=== PATIENT | male | born 1950 | race Caucasian/White ===

== ENCOUNTER 2020-05-09 09:19 | Emergency (ER) | payer MEDICARE ==
[~2020-05-09] VITALS: Ht 177.8 cm; Wt 92.5 kg
[~2020-05-09 09:19] MED LIST: ASPIR 8181 M1 PO; ATORVASTATIN CA40 MG PO; EFFIENT10 MG PO; GLYBURIDE 2.52.5 MG PO; IMDUR 30 MG TAB30 M1 PO; LISINOPRIL-HCT1 EACH PO; METFORMIN HCL500 MG PO; NITROGLYCERIN0.4 MG SUBLING
[2020-05-09] MEDS ORDERED: TRESIBA FL100 UNIT/1 SUBQ (09:29)
[2020-05-09 10:18] LABS: HEMOGLOBIN 17.5 gm/dL (14.0-18.0); MCH 31.7 pg (26.0-34.0); MCHC 35.1 g/dL (28.0-37.0); MCV 90.3 fL (80.0-100.0); MPV 8.1 fl. (7.2-11.1); NUCLEATED RBCS 0 /100WBC; PLATELET COUNT* 132 thou/uL (150-400); RBC 5.53 mil/uL (4.50-6.00); RDW-CV 12.6 % (10.5-14.5)
[2020-05-09 10:36] LABS: CALCIUM 8.5 mg/dL (8.5-10.1); POTASSIUM 3.6 mmol/L (3.5-5.1)
[2020-05-09 10:40] LABS: ALBUMIN 3.5 g/dL (3.4-5.0); TOTAL BILIRUBIN 1.4 mg/dL (<0.1-1.0); TOTAL PROTEIN 6.9 g/dL (6.4-8.2)
[2020-05-09 10:54] LABS: BE -3.5 mmol/L (-2 to +3); PO2 116.7 mmHg (75.0-100.0); pH 7.543 (7.340-7.450)
[2020-05-09 10:55] LABS: PCO2 17.7 mmHg (35.0-45.0)
[2020-05-09 11:06] LABS: ABSOLUTE LYMPHOCYTES 0.5 thou/uL (0.8-5.3); ABSOLUTE MONOCYTES 0.4 thou/uL (0.0-1.2); ABSOLUTE NEUTROPHILS 0.6 thou/uL (1.6-8.1); PLATELET ESTIMATE DECREASED
[2020-05-09 12:00] VITALS: BP 157/74
[2020-05-10 10:03] LABS: WBC 1.5 thou/uL (4.0-11.0)
== END 2020-05-09 12:00 | disposition home or self-care (01) ==
LOC: M.ERS 09:19
PROVIDERS: Personal Emergency Response Attendant
DX: U07.1 COVID-19 (principal); I10 Essential (primary) hypertension; E78.00 Pure hypercholesterolemia, unspecified; E11.9 Type 2 diabetes mellitus without complications; Z85.46 Personal history of malignant neoplasm of prostate; Z79.4 Long term (current) use of insulin; Z88.0 Allergy status to penicillin; Z88.2 Allergy status to sulfonamides

== ENCOUNTER 2020-05-12 19:41 | Inpatient (IN) | payer MEDICARE ==
[~2020-05-12] VITALS: Ht 177.8 cm; Wt 85.3 kg
[~2020-05-12 19:41] MED LIST changes: +TRESIBA FL100 UNIT/1 SUBQ
[2020-05-12 19:44] VITALS: BP 148/81
[2020-05-12 20:50] LABS: ABSOLUTE LYMPHOCYTES 0.3 thou/uL (0.8-5.3); ABSOLUTE MONOCYTES 0.6 thou/uL (0.0-1.2); ABSOLUTE NEUTROPHILS 2.8 thou/uL (1.6-8.1); BASOPHILS 0.7 %; EOSINOPHILS 0.1 %; HEMATOCRIT 49.3 % (42.0-52.0); HEMOGLOBIN 17.5 gm/dL (14.0-18.0); LYMPHOCYTES 9.2 %; MCH 31.6 pg (26.0-34.0); MCHC 35.6 g/dL (28.0-37.0); MCV 88.9 fL (80.0-100.0); MONOCYTES 15.3 %; MPV 8.7 fl. (7.2-11.1); NUCLEATED RBCS 0 /100WBC; PLATELET COUNT* 142 thou/uL (150-400); POLYS 74.7 %; RBC 5.54 mil/uL (4.50-6.00); RDW-CV 12.6 % (10.5-14.5); WBC 3.7 thou/uL (4.0-11.0)
[2020-05-12 20:51] LABS: CALCIUM 8.1 mg/dL (8.5-10.1); CREATININE 0.8 mg/dL (0.6-1.3); POTASSIUM 3.9 mmol/L (3.5-5.1)
[2020-05-12 21:01] LABS: ALBUMIN 3.1 g/dL (3.4-5.0); TOTAL BILIRUBIN 1.2 mg/dL (<0.1-1.0); TOTAL PROTEIN 6.7 g/dL (6.4-8.2)
[2020-05-12 23:48] VITALS: BP 150/76
[2020-05-13 00:54] VITALS: BP 147/82
[2020-05-13 04:00] VITALS: BP 167/83
[2020-05-13 08:00] VITALS: BP 159/81
[2020-05-13 08:24] LABS: ABSOLUTE LYMPHOCYTES 0.2 thou/uL (0.8-5.3); ABSOLUTE MONOCYTES 0.2 thou/uL (0.0-1.2); ABSOLUTE NEUTROPHILS 2.4 thou/uL (1.6-8.1); BASOPHILS 0.7 %; EOSINOPHILS 0.1 %; HEMATOCRIT 45.4 % (42.0-52.0); HEMOGLOBIN 16.4 gm/dL (14.0-18.0); LYMPHOCYTES 7.6 %; MCH 31.9 pg (26.0-34.0); MCHC 36.1 g/dL (28.0-37.0); MCV 88.4 fL (80.0-100.0); MONOCYTES 8.7 %; MPV 8.8 fl. (7.2-11.1); NUCLEATED RBCS 0 /100WBC; PLATELET COUNT* 115 thou/uL (150-400); POLYS 82.9 %; RBC 5.13 mil/uL (4.50-6.00); RDW-CV 12.5 % (10.5-14.5); WBC 2.9 thou/uL (4.0-11.0)
[2020-05-13 08:39] LABS: CALCIUM 7.9 mg/dL (8.5-10.1); CREATININE 0.8 mg/dL (0.6-1.3); POTASSIUM 3.8 mmol/L (3.5-5.1); TOTAL BILIRUBIN 0.7 mg/dL (<0.1-1.0); TOTAL PROTEIN 5.8 g/dL (6.4-8.2)
[2020-05-13 14:06] VITALS: BP 143/71
--- NOTE | 2020-05-13 15:11 | EKG ---
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 : 1950 Requested By: Isauro Lucia Order Number: [id number] MD: Gabriel Ruff Measurements Intervals [place] Rate: 88 P: 70 [place]: 153 QRS: 58 QRSD: 93 T: 36 QT: 364 QTc: 441 Interpretive Statements Sinus rhythm Borderline low voltage, extremity leads Possible anteroseptal infarct, old Baseline wander in lead(s) V1 Compared to ECG 11/10/2016 08:15:29 Myocardial infarct finding now present Electronically Signed On 05-13-2020 15:11:37 [employer]CTIONAL OFFICER CAPTAIN by Gabriel Ruff [email or web address] <ELECTRONICALLY SIGNED> By: Gabriel Ruff MD, FACC 05/13/20 1511 54 54 Gabriel Ruff MD, FACC /EPI
[2020-05-13 18:24] VITALS: BP 132/56
[2020-05-13 20:30] VITALS: BP 155/74
[2020-05-14] VITALS: BP 134/65
[2020-05-14 04:00] VITALS: BP 148/70
[2020-05-14 09:00] VITALS: BP 124/63
[2020-05-14 17:00] VITALS: BP 145/78
[2020-05-14 20:30] VITALS: BP 137/62
[2020-05-15] VITALS: BP 136/66
[2020-05-15 04:00] VITALS: BP 133/65
[2020-05-15 04:56] LABS: HEMATOCRIT 40.1 % (42.0-52.0); HEMOGLOBIN 14.5 gm/dL (14.0-18.0); MCH 31.3 pg (26.0-34.0); MCHC 36.1 g/dL (28.0-37.0); MCV 86.8 fL (80.0-100.0); MPV 7.9 fl. (7.2-11.1); RBC 4.62 mil/uL (4.50-6.00); RDW-CV 12.5 % (10.5-14.5); WBC 4.1 thou/uL (4.0-11.0)
[2020-05-15 05:09] LABS: CALCIUM 7.7 mg/dL (8.5-10.1); CREATININE 0.7 mg/dL (0.6-1.3); POTASSIUM 3.6 mmol/L (3.5-5.1)
[2020-05-15 07:40] VITALS: BP 120/68
[2020-05-15 11:41] VITALS: BP 140/80
[2020-05-15 16:58] VITALS: BP 127/70
[2020-05-15 20:00] VITALS: BP 139/79
[2020-05-16] VITALS: BP 119/55
[2020-05-16 03:46] VITALS: BP 154/77
[2020-05-16 05:15] LABS: HEMATOCRIT 40.7 % (42.0-52.0); HEMOGLOBIN 14.5 gm/dL (14.0-18.0); MCH 31.5 pg (26.0-34.0); MCHC 35.7 g/dL (28.0-37.0); MCV 88.3 fL (80.0-100.0); MPV 7.6 fl. (7.2-11.1); RBC 4.61 mil/uL (4.50-6.00); RDW-CV 12.6 % (10.5-14.5); WBC 4.2 thou/uL (4.0-11.0)
[2020-05-16 05:46] LABS: ALBUMIN 2.5 g/dL (3.4-5.0); CALCIUM 8.2 mg/dL (8.5-10.1); CREATININE 0.7 mg/dL (0.6-1.3); MAGNESIUM 2.2 mg/dL (1.8-2.4); POTASSIUM 3.9 mmol/L (3.5-5.1); TOTAL BILIRUBIN 0.5 mg/dL (<0.1-1.0); TOTAL PROTEIN 5.5 g/dL (6.4-8.2)
[2020-05-16] MEDS ORDERED: LEVOFLOXACIN750 MG PO (07:44)
[2020-05-16] MEDS ORDERED: PREDNISONE 10 M10 M1 PO (07:44)
[2020-05-16 09:52] VITALS: BP 121/61
--- NOTE | 2020-05-16 09:55 | CON ---
[address] [address] CONSULTATION Name: SHANDA FRASER Room: [address] IN M.R.#: [id number] Admission: 05/12/20 Attend Phys: Isaac Elizalde MD Discharge: Date of : 54 Report #: [id number] THIS REPORT FOR: cc: Harmony Corrigan MD, Regina MD ~ Hellen Azevedo MD DATE OF SERVICE: 05/15/2020 REASON FOR CONSULTATION: Thrombocytopenia. REQUESTING PHYSICIAN: Isaac Elizalde MD HISTORY OF PRESENT ILLNESS: The patient is a 70-year-old man who was recently discharged from [facility] after being treated for COVID pneumonia. The patient's symptoms got worse at home, became more hypoxic and he is admitted to the hospital again with COVID pneumonia. I am consulted for thrombocytopenia. PAST MEDICAL HISTORY: Significant for: 1. Coronary artery disease. 2. Diabetes mellitus. 3. Hyperlipidemia. 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 PHYSICAL EXAMINATION: Done from distant physical exam notes by primary team, Dr. Isaac Elizalde, reviewed. VITAL SIGNS: Blood pressure 120/68, heart rate is 62, temperature 98.0, respirations 18. LABORATORY DATA: White count today 4.1, hemoglobin 14.5, platelets 141. On admission, white count 1.5, platelets 135. COVID test positive. ASSESSMENT AND PLAN: Thrombocytopenia. The patient had mild thrombocytopenia on admission today. Platelets are better. Most likely cause of thrombocytopenia is secondary to COVID and sepsis. Continue to monitor platelet count. For now, I do not feel that any other workup is necessary. Platelet count is minimally decreased. Thank you very much for allowing me to participate in the [place] [address] CONSULTATION Name: SHANAD FRASER Room: [address] IN [facility].#: [id number] Admission: 05/12/20 Attend Phys: Isaac Elizalde MD Discharge: Date of : 54 Report #: [id number] We will follow the patient from the periphery. If any questions arise, please notify us. <ELECTRONICALLY SIGNED> By: Hellen Azevedo MD 05/16/20 [id number] Azevedo MD /nt
[2020-05-16 12:31] VITALS: BP 119/64
[2020-05-16 13:46] VITALS: BP 119/64
== END 2020-05-16 14:50 | disposition home or self-care (01) | DRG 177 ==
LOC: M.ERS 19:41 → M.TBA-ER 21:38 → M.ORTHSURG 21:38
PROVIDERS: Emergency Medicine Emergency Medical Services; Internal Medicine; Nurse Practitioner Family; ADMIT Internal Medicine; ATTEND Internal Medicine
DX: U07.1 COVID-19 (principal); J12.89 Other viral pneumonia; I10 Essential (primary) hypertension; E78.00 Pure hypercholesterolemia, unspecified; E11.9 Type 2 diabetes mellitus without complications; I25.10 Atherosclerotic heart disease of native coronary artery without angina pectoris; E78.5 Hyperlipidemia, unspecified; D70.9 Neutropenia, unspecified; D69.6 Thrombocytopenia, unspecified; Z87.891 Personal history of nicotine dependence; I25.2 Old myocardial infarction; Z95.5 Presence of coronary angioplasty implant and graft; Z85.46 Personal history of malignant neoplasm of prostate; Z92.3 Personal history of irradiation; Z88.0 Allergy status to penicillin; Z88.2 Allergy status to sulfonamides